=== PATIENT | female | born 1990 | race Caucasian/White ===

== ENCOUNTER 2024-11-09 04:44 | Emergency (ER) | payer MEDICAID, SELFPAY ==
--- NOTE | 2024-11-09 04:53 | PD.EDRME ---
Rapid Medical Screening Exam RME Arrival date/time: 11/09/24 04:44 34-year-old disheveled female presents emergency department reporting I took too much cocaine. Chief Complaint: Nausea/Vomiting/Diarrhea Time Seen by Provider: 11/09/24 04:45 Vital signs reviewed by provider: Yes
[2024-11-09] MEDS: LORazepam 2 MG/ML VIAL IM (05:01)
--- NOTE | 2024-11-09 05:03 | PD.EDADULT ---
ED General RME/HPI General Chief complaint: Nausea/Vomiting/Diarrhea Stated complaint: i am having a Cocaine Overdose Time Seen by Provider: 11/09/24 04:45 Arrival date/time: 11/09/24 04:44 RME / HPI RME / HPI narrative: 11/09/24 04:44 RME: 34-year-old disheveled female presents emergency department reporting I took too much cocaine. SIMONA HPI: 34-year-old female without past medical history who took approximately a gram of cocaine about an hour ago. She is extremely disorganized, she complains of palpitation without chest pain. She is actively vomiting and having bowel movements at the same time in the room. Related Data Previous Rx's ?Medication ?Instructions ?Recorded amoxicillin 875 mg-potassium 1 tab PO BID sinusitis #14 tabs 01/09/24 clavulanate 125 mg tablet Allergies Allergy/AdvReac Type Severity Reaction Status Date / Time No Known Allergies Allergy Verified 01/07/24 12:32 Review of Systems Review of Systems Systems Reviewed: All systems reviewed, normal except as documented ED Exam Narrative Physical exam: GENERAL APPEARANCE: Awake, hyperstimulated, disheveled, malodorous, vomiting and having a bowel movement at the same time in room 10 HEENT: NC, AT. MMM. EOMI, clear conjunctiva, oropharynx clear. NECK: Supple without lymphadenopathy. No stiffness or restricted ROM. HEART: Normal rate and regular rhythm, normal S1/S1, no m/r/g LUNGS: CTAB, moving air well. No crackles or wheezes are heard. ABDOMEN: Soft, nontender, nondistended with good bowel sounds heard. BACK: No midline C/T/L spine pain or deformity, No CVAT, no obvious deformity. EXTREMITIES: Without cyanosis, clubbing or edema. MUSCULOSKELETAL: FROM of all major joints, no chest tenderness NEUROLOGICAL: Grossly nonfocal. Alert and oriented, moving all 4 extremities. CN not formally tested but appear grossly intact. Observed to ambulate with normal gait. Skin: Warm and dry without any rash. Course Course Course Narrative: 0600 signed out to dylan CASTRO pending laboratory results, reexamination, and final disposition. Quality Measures none Orders Category Date Time Status EKG (ED ONLY) *Do not use* NOW Care 11/09/24 04:55 Active EKG (ED Only) Stat Exams 11/09/24 04:55 Ordered Acetaminophen Stat Lab 11/09/24 05:01 Ordered Alcohol, Blood Medical Stat Lab 11/09/24 05:01 Ordered CBC Stat Lab 11/09/24 05:01 Ordered CMP [Comprehensive Metabolic Panel] Stat Lab 11/09/24 05:01 Ordered Creatine Kinase Stat Lab 11/09/24 05:01 Ordered Drug Screen,Urine Stat Lab 11/09/24 05:02 Ordered HCG Qualitative,Urine Stat Lab 11/09/24 05:02 Ordered Troponin I Stat Lab 11/09/24 05:01 Ordered LORazepam [Ativan Inj] Med 11/09/24 04:57 Discontinued 2 mg IM X1 ONE Ondansetron Inj [Zofran Inj] Med 11/09/24 05:01 Once 4 mg IV X1 ONE Sodium Chloride 0.9% 1000 ml [Ns] 1,000 ml Med 11/09/24 05:01 Active IV 999 mls/hr MDM Patient data External records reviewed:: [facility] previous records Clinical information provided by:: patient Social determinants that could affect healthcare access:: substance use Patient has the following chronic illnesses:: None How is presenting disease/condition affected by chronic disease/condition?: no chronic disease Evaluation data The following diagnostics were reviewed and interpreted by me:: other (specify) (Workup pending) Lab and/or radiology exams considered but not ordered:: Workup pending Interpretation Summary: Workup pending Medications Medications considered but not ordered:: Workup pending Medication administrations:: Medication Administration History Sodium Chloride (Ns) 1,000 mls @ 999 mls/hr IV .Q1H1M ONE Stop: 11/09/24 06:01 Ondansetron HCl (Ondansetron Inj 2 Mg/Ml Inj 2 Ml) 4 mg IV X1 ONE; Protocol Stop: 11/09/24 05:02 Discontinued Medications Lorazepam (Lorazepam 2 Mg/Ml Vial) 2 mg IM X1 ONE Stop: 11/09/24 04:58 Last Admin: 11/09/24 05:01 Dose: 2 mg Documented By: KD Above Consultations Consultation(s) initiated? (list below): No Diagnosis Differential Diagnosis ED Complaint MDM: Workup pending Most likely diagnosis given after review of the tests above:: Workup pending Admission Indicated Admission indicated?: not indicated Explain why admission is indicated or not indicated:: Workup pending Admission Request Was there a request for admission?: No Disposition Plan Disposition Plan: other (specify) (Signed out to oncoming provider in stable condition pending results and final disposition) Medical Decision Making Differential Diagnosis Differential Diagnosis: Workup pending Discharge Plan Prescriptions/Referrals Prescriptions/Med Rec: No Action amoxicillin-pot clavulanate 875-125 mg tablet 1 tab PO BID Qty: 14 0RF Problem List Clinical Impression: Cocaine abuse Patient/Caregiver Discharge Instructions Print Language: Maldivian
[2024-11-09] MEDS: ONDANSETRON INJ 2 MG/ML INJ 2 ML 4 MG IV (05:19)
[2024-11-09] MEDS: SODIUM CHLORIDE 0.9% 1000 ML 1,000 ML 999 ML IV ×2 (05:20→11:39)
[2024-11-09 05:21] VITALS: BP 130/109; PULSE 94; RESP 17; O2SAT 100
[2024-11-09 05:37] LABS: Basophils # (Auto) 0.1 Thou/mm3 (0.0-0.2); Basophils % (Auto) 0 % (0-2.5); Eosinophils # (Auto) 0.1 Thou/mm3 (0.0-0.5); Eosinophils % (Auto) 1 % (0-10); Hematocrit 47.1 % (36.0-46.0); Hemoglobin 15.6 g/dL (12.0-16.0); Immature Granulocytes % (Auto) 1 % (0-0); Immature Granulocytes Auto 0.13 Thou/mm3 (0.00-0.00); Lymphocytes # (Auto) 1.1 Thou/mm3 (1.0-4.8); Lymphocytes % (Auto) 5 % (10-50); Mean Corpuscular HGB Conc 33.1 g/dl (31.0-37.0); Mean Corpuscular Hemoglobin 28.9 pg (25.0-35.0); Mean Corpuscular Volume 87 fL (80-100); Monocytes % (Auto) 5 % (0-12); Neutrophils # (Auto) 18.8 Thou/mm3 (1.8-7.7); Neutrophils % (Auto) 89 % (37-80); Nucleated Red Blood Cell % 0 /100 WBC (0); Platelet Count 401 Thou/mm3 (140-440); RDW Standard Deviation 42.9 fL (36.4-46.3); Red Blood Count 5.39 Miln/mm3 (4.00-5.20); White Blood Count 21.2 Thou/mm3 (3.6-11.0)
[2024-11-09 06:23] LABS: Acetaminophen < 2.0 mcg/mL (10.0-20.0); Alanine Aminotransferase 16 U/L (10-49); Albumin, Serum 5.5 gm/dL (3.5-5.0); Albumin/Globulin Ratio 1.8 (1.2-2.2); Alcohol, Blood Medical < 3.0 mg/dL (0-10.0); Alkaline Phosphatase 75 U/L (46-116); Anion Gap 14 (7-16); Aspartate Amino Transferase 29 U/L (0-34); BUN/Creatinine Ratio 17 Ratio (12-20); Bilirubin,Total 0.4 mg/dL (0.3-1.2); Blood Urea Nitrogen 17 mg/dL (9-23); Calcium 9.4 mg/dL (8.3-10.6); Calcium (Corrected) 9.4 mg/dL (8.5-10.1); Carbon Dioxide 22.7 mMol/L (20.0-31.0); Chloride 103 mMol/L (98-107); Creatine Kinase 135 U/L (34-171); Glucose 177 mg/dL (74-106); Osmolality,Calculated 284 (275-295); Potassium 4.8 mMol/L (3.4-5.1); Sodium 140 mMol/L (136-145); Total Protein 8.5 gm/dL (5.7-8.2); eGFR > 60 See Note
[2024-11-09 06:37] LABS: Troponin I < 0.002 ng/mL (0.0-0.045)
--- NOTE | 2024-11-09 06:38 | PD.EDADDENDU ---
Emergency Room Addendum <Rin Cam - Last Filed: 11/09/24 06:40> Addendum Narrative: 0600: Care assumed from Dr. Mcclain, the previous shift emergency physician. Past medical, surgical, social and family history reviewed. Vitals and home medications reviewed. I will assume the care of the patient at this time pending labs, reassessment, and final disposition. Please refer to the emergency department record for history and examination from initial visit.? Nursing notes reviewed by me. Vital signs reviewed by me. [facility] records reviewed by me. [facility] medical records reviewed by me. I reviewed admission from 01/07/2024 through 01/09/2024. <Kashif Muller MD - Last Filed: 11/09/24 12:27> Addendum Narrative: 0600: Care assumed from Dr. Mcclain, the previous shift emergency physician. Past medical, surgical, social and family history reviewed. Vitals and home medications reviewed. I will assume the care of the patient at this time pending labs, reassessment, and final disposition. Please refer to the emergency department record for history and examination from initial visit.? Nursing notes reviewed by me. Vital signs reviewed by me. [facility] records reviewed by me. [facility] medical records reviewed by me. I reviewed admission from 01/07/2024 through 01/09/2024. WBC count of 21,000 most likely secondary to stress from cocaine abuse. Blood sugar is 177 the rest of CHEM 21 is negative. Troponin negative. test negative. Tylenol level negative. Alcohol level negative. CK negative. U tox positive for cocaine and marijuana. 12:25 PM, the patient is alert awake oriented x 4 GCS of 15 no complaint. No suicidal homicidal ideation. No hallucination. No delusion. And she is eager to go home. Her is here for pickup. She said that this is not the first time that she used cocaine and marijuana. She denied any swallowing of cocaine and marijuana in any form. The latest vital signs this time his blood pressure 134/79. Pulse of 94 regular rate and rhythm. Respiration rate 18. Temperature of 98.5. An O2 saturation 97% room air. Diagnosis: Cocaine abuse Marijuana use Condition: Stable and improved for DC home. DC instruction: Please stop using marijuana and cocaine. Follow-up with your medical doctor in 72 hours for recheck and further care. Return the nearest ER if any problem.
[2024-11-09 07:38] VITALS: BP 139/105; PULSE 100; RESP 18; TEMP 37; O2SAT 100
--- NOTE | 2024-11-09 07:40 | PC.NURSE ---
Pt. here from home, pt.'s is bedside, states that their daughter 12 years old just on at [facility] in pt.'s arms and pt.'s brother shot himself in January after their daughter was born in December, states that pt. is dealing with a lot of emotions right now. states that [facility] has been in touch with them for support, husbands states that last night pt. went with her sister and partied to hard. Pt. has a 10 month old baby and states that the baby is safe and with his parents who live next door to pt. and her . states that pt. does not do drugs on a regular basis. Pt. resting with her eyes closed. Informed we are waiting on a urine sample from pt., states he knows. Offered a warm blanket, husbands states they are fine at this time.
[2024-11-09 09:56] VITALS: BP 118/90; PULSE 100; RESP 19; TEMP 37; O2SAT 96
[2024-11-09 12:05] LABS: HCG Qualitative,Urine Negative
[2024-11-09 12:07] VITALS: BP 134/79; PULSE 94; RESP 18; TEMP 36.9; O2SAT 97
[2024-11-09 12:10] LABS: Amphetamine/Methamp Scrn,U Negative (Negative); Barbiturate Screen,Urine Negative (Negative); Benzodiazepines Screen,Urine Negative (Negative); Benzoylecgonine Screen, Ur Positive (Negative); Fentanyl Screen,Urine Negative (Negative); Opiate Screen,Urine Negative (Negative); THC Screen,Urine Positive (Negative)
[2024-11-09 13:14] VITALS: BP 120/86; PULSE 88; RESP 17; TEMP 37.3; O2SAT 97
== END 2024-11-09 13:14 | disposition home or self-care (01) ==
PROVIDERS: Emergency Provider Emergency Medicine; Referring Provider Emergency Medicine
DX: F14.10 Cocaine abuse, uncomplicated (principal)
CPT/HCPCS: 36415; 80053; 80307; 80320; 80329; 81025; 82550; 84484; 85025; 93005; 96361; 96372; 96374; 99284; J2060; J2405; J7030; G0480